=== PATIENT | male | born 1985 | race Caucasian/White ===

== ENCOUNTER 2017-01-03 20:21 | Emergency (ER) | payer OTHER, BC ==
[2017-01-04] MEDS ORDERED: LIDOCAINE 1% INJ-PF (10 MG/ML) 30 ML SDV INJ ONE (00:02)
[2017-01-04] MEDS ORDERED: DIPH/PERTUSS(ACELL)/TETANUS VAC/PF 0.5 ML SYR (>=10YO) IM ONE (00:34)
--- NOTE | 2017-01-04 00:42 | ER Document Report ---
ED General - General Chief Complaint: Laceration Stated Complaint: FINGER INJURY Notes: Patient is 31-year-old male who presents with complaints of laceration to dorsal aspect of his left hand. He was using a drill and drilling into a metal plate. Metal plate came loose and spun and the corner cut the dorsal aspect of the left third MCP. Since then he has been unable to fully extend the finger. No other injuries. - Related Data Allergies/Adverse Reactions: No Known Allergies Allergy (Unverified 01/03/17 20:46) Past Medical History - Social History Smoking Status: Never Smoker Frequency of alcohol use: None Drug Abuse: None Family History: Reviewed & Not Pertinent Renal/ Medical History: Denies: Hx Peritoneal Dialysis - Immunizations Hx Diphtheria, Pertussis, Tetanus Vaccination: Yes Review of Systems - Review of Systems Notes: My Normal Review Basic REVIEW OF SYSTEMS: CONSTITUTIONAL : Denies fever, chills, or sweats. Denies recent illness. MUSCULOSKELETAL: Laceration to left third MCP with inability to fully extend his left third finger. SKIN: Denies rash or skin lesions. HEMATOLOGIC : Denies easy bruising or bleeding. NEUROLOGICAL: Denies altered mental status or loss of consciousness. Denies headache. Denies weakness or paralysis or loss of use of either side. Denies problems with gait or speech. Denies sensory or motor loss. PSYCHIATRIC: Denies anxiety or stress or depression. ALL OTHER SYSTEMS REVIEWED AND NEGATIVE. Physical Exam - Vital signs Vitals: Temp Pulse Resp BP Pulse Ox 98.4 F 116 H 17 146/89 H 94 01/03/17 20:46 01/03/17 20:46 01/03/17 20:46 01/03/17 20:46 01/03/17 20:46 - Notes Notes: General Appearance: Well nourished, alert, cooperative, no acute distress, mild obvious discomfort. Vitals: reviewed, See vital signs table. Head: no swelling or tenderness to the head Eyes: PERRL, EOMI, Conjuctiva clear Extremities: Good capillary refill in all digits. Patient does have a 1.5 to 2 centimeter laceration over the dorsal aspect of the third MCP of the left hand. I can't see the extensor tendon appears have been lacerated. Patient keeps the left third finger in slightly flexed position. He is unable to fully extend the finger. Distal sensation is intact. No active bleeding. Skin: warm, dry, appropriate color, no rash Neuro: speech clear, oriented x 3, normal affect, responds appropriately to questions. Course - Re-evaluation Re-evalutation: 01/04/17 01:[address] Mayen, hand surgeon in [place], [place]. He agrees with plan to close laceration and place patient in splint. He wants patient to follow up with him on Thursday or Thursday in the office so he can reevaluate and repair the tendon injury. 01/04/17 06:17 At it widest point the patient's hand. Laceration was repaired. Wound is fully cleaned and flushed. They explained to the patient the importance that he does follow closely with the hand surgeon in regards to his tendon laceration. Patient is agreeable to this. Patient even prescription Keflex to prevent infection. Patient encouraged return to the ER if has worsening pain, redness or swelling, or feels unwell. Patient agreed with plan and was discharged home. Dictation of this chart was performed using voice recognition software; therefore, there may be some unintended grammatical errors. - Vital Signs Vital signs: Temp Pulse Resp BP Pulse Ox 97.9 F 81 17 122/81 100 01/04/17 01:55 01/04/17 01:55 01/04/17 01:55 01/04/17 01:55 01/04/17 01:55 Procedures - Immobilization volar left hand Pre-Proc Neuro Vasc Exam: Normal Immobilizer type: Volar splint Performed by: Provider Post-Proc Neuro Vasc Exam: Unchanged from pre-exam Notes: 01/04/17 02:04 volar splint placed with fingers in slight extension from natural position. - Laceration/Wound Repair left hand Wound length (cm): 2 Wound's Depth, Shape: Linear Anesthetic type: 1% Lidocaine Volume Anesthetic (mLs): 2 Wound explored: Clean Irrigated w/ Saline (mLs): 40 Wound Repaired With: Sutures Suture Size/Type: 5:0, Ethilon Number of Sutures: 2 Post-procedure wound care: Splint applied Post-procedure NV exam normal: Yes Complications: No Discharge - Discharge Clinical Impression: Laceration, Tendon laceration Condition: Good Disposition: HOME, SELF-CARE Additional Instructions: Splitn Precautions A splint has been placed. This will protect the area while healing begins. Your problem does NOT normally require a cast. It MUST, however, be held still! Keep the splint on ALL THE TIME until instructed to remove it by the doctor. As you begin to use the area, be careful. You shouldn't do anything which causes discomfort -- you may disturb the injury even with the splint in place. After the initial period of rest and elevation, if splint does not prevent pain when you move, come back. You may require placement of a different splint , or a cast. If there is unexpected severe pain, or numbness, discoloration, or swelling beyond the splint, you should return at once. If you feel that the splint has broken or become loose, come back. Please follow up with Dr. Mayen, hand surgeon in [place], on Thursday or Thursday. His office number is [phone]. Please call the office Thursday morning so you can have a close follow up appointemnt. I have also included the number to Dr. Stanford, local hand surgeon. He is not continuum of care manager [facility] so I cannot guarantee he can get you seen in a timely fashion. You must be seen early this week due to the tendon injury. You can call Dr. Stanford's office and if they can see you Thursday or Thursday that is fine as well. If Dr. Stanford's office cannot not fit you in quickly than you must go to Dr. Mayen in [place]. Your stitches need to be removed in 5-7 days. Please return to the ER immediately if you develop any redness or swelling to the hand. Prescriptions: Cephalexin Monohydrate [Keflex 500 mg Capsule] 500 mg PO BID #14 capsule Forms: Return to Work Referrals: STEW STANFORD DO [ACTIVE STAFF] - 01/05/17
[2017-01-04] MEDS ORDERED: CEPHALEXIN 500 MG CAPSULE PO ONE (01:28)
[2017-01-04 02:12] VITALS: BP 122/81
== END 2017-01-04 01:58 | disposition home or self-care (01) ==
LOC: ER 20:21
PROC: 0HQGXZZ Repair Left Hand Skin, External Approach (ICD-10-PCS; principal; 2017-01-03)
DX: S66.822A Laceration of other specified muscles, fascia and tendons at wrist and hand level, left hand, initial encounter (principal); S61.412A Laceration without foreign body of left hand, initial encounter; W20.8XXA Other cause of strike by thrown, projected or falling object, initial encounter; Y93.89 Activity, other specified
CPT/HCPCS: 99282; 90471; 90715; 12001; J3490